=== PATIENT | male | born 2000 | race African-American/Black ===

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

== ENCOUNTER 2021-01-27 00:43 | Emergency (ER) | payer OTHER ==
[2021-01-27] MEDS ORDERED: diphenhydrAMINE HCL 25 MG CAPSULE (FP) PO ONE ×2 (00:53→00:54)
[2021-01-27] MEDS ORDERED: FAMOTIDINE 20 MG TABLET PO ONE (00:53)
[2021-01-27] MEDS ORDERED: DEXAMETHASONE SOD PHOSPHATE 10 MG/1 ML VIAL PO ONE (00:54)
[2021-01-27] MEDS ORDERED: DEXAMETHASONE SOD PHOSPHATE 10 MG/1 ML VIAL ONE (00:54)
[2021-01-27 01:01] VITALS: BP 107/65; PULSE 74; TEMP 97.6; BMI 21.9
[2021-01-27] MEDS ORDERED: FAMOTIDINE 20 MG TABLET ONE (01:06)
== END 2021-01-27 02:03 | disposition home or self-care (01) ==
LOC: JER 00:43
DX: T78.40XA Allergy, unspecified, initial encounter (principal)
CPT/HCPCS: 99284-25; J1100